=== PATIENT | male | born 1975 | race Two or more races ===

== ENCOUNTER 2017-07-27 18:19 | Emergency (ER) | payer OTHER ==
--- NOTE | 2017-07-27 18:31 | EDPHY ---
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 He is left-handed. 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 He de-gloved the distal aspect of his left index finger distal to the PIP joint. The bone is still intact. No other injuries. He has the tip of the finger with him and his work glove. He last ate at 3:00 p.m. and had a drink of water about 10 minutes ago. REVIEW OF SYSTEMS: Constitutional: denies: chills, fever, recent illness, recent injury EENTM: denies: blurred vision, double vision, nose congestion Respiratory: denies: cough, shortness of breath Cardiac: denies: chest pain, irregular heart rate, lightheadedness, palpitations Gastrointestinal/Abdominal: denies: abdominal pain, diarrhea, nausea, vomiting, blood streaked stools Genitourinary: denies: dysuria, frequency, hematuria, pain Musculoskeletal: See HPI Skin: See HPI Neurological: denies: headache, numbness, paresthesia, tingling, dizziness, weakness Hematologic/Lymphatic: denies: blood clots, easy bleeding, easy bruising Immunologic/allergic: denies: HIV/AIDS, transplant EXAM: GENERAL: Well-appearing, well-nourished and in no acute distress. HEAD: Atraumatic, normocephalic. EYES: Pupils equal round and reactive to light, extraocular movements intact, sclera anicteric, conjunctiva are normal. ENT: TMs normal, nares patent, oropharynx clear without exudates. Moist mucous membranes. NECK: Normal range of motion, supple without lymphadenopathy or JVD. LUNGS: Breath sounds clear to auscultation bilaterally and equal. No wheezes rales or rhonchi. HEART: Regular rate and rhythm without murmurs, rubs or gallops. ABDOMEN: Soft, nontender, normoactive bowel sounds. No guarding, no rebound. No masses appreciated. BACK: No CVA tenderness, no spinal tenderness, step-offs or deformities EXTREMITIES: Degloving injury to left index finger distal to the PIP, bone is intact. Significant pain, NEUROLOGICAL: Cranial nerves II through XII grossly intact. Normal speech, normal gait. 5/5 strength, normal movement in all extremities, normal sensation PSYCH: Normal mood, normal affect. SKIN: See above Source: Patient Exam Limitations: No limitations - Medical/Surgical History Hx Asthma: No Hx Chronic Respiratory Disease: No Hx Diabetes: No Hx Cardiac Disease: No Hx Renal Disease: No Hx Cirrhosis: No Hx Alcoholism: No - Family History Significant Family History: No pertinent family hx - Social History Smoking Status: Never smoked Alcohol Use: Sober Drug Use: None Constitutional: Initial Vital Signs Temperature (C) 37.1 C 07/27/17 18:22 Heart Rate 72 07/27/17 18:22 Respiratory Rate 16 07/27/17 18:22 Blood Pressure 116/79 07/27/17 18:22 O2 Sat (%) 95 07/27/17 18:22 O2 Delivery Mode Room Air Allergies/Adverse Reactions: No Known Allergies Allergy (Verified 07/27/17 18:29) Home Medications: Medication Instructions Recorded Cephalexin [Keflex] 500 mg PO TID #21 cap 07/27/17 Hydrocodone/APAP 5/325 [[place] 1 - 2 tab PO Q4H PRN #20 tab 07/27/17 5/325 (RX)] Medical Decision Making - Diagnostics Imaging Results: Imaging Impressions Finger X-Ray 07/27/17 18:25 Impression: Soft tissue amputation with partial truncation of the distal tuft of the distal portion of the index finger. ED Course/Re-evaluation: 6:30 p.m. I discussed the case with the PA on-call for Dr. Law. They will discuss and call back. X-rays are currently being taken. 6:50 p.m. I discussed the case with Dr. Law who has reviewed the x-rays and will come to rongeur the bone down. He states that he will leave it open because it is a dirty injury. 8:[address] Law completed the amputation and closed the soft tissue. He requests 5 days of Keflex and pain control and follow-up with his office. Differential Diagnosis: Partial list of the Differential diagnosis considered include but were not limited to; finger amputation, degloving and although unlikely based on the history and physical exam, I also considered infection, foreign body. I discussed these differential diagnoses and the plan with the patient as well as the usual and expected course. The patient understands that the diagnosis is provisional and that in medicine we are not always correct and that further workup is often warranted. Usual and customary warnings were given. All of the patient's questions were answered. The patient was instructed to return to the emergency department should the symptoms at all worsen or return, otherwise to followup with the physician as we discussed. - Data Points Laboratory Results: Laboratory Results 07/27/17 18:35 07/27/17 18:35 07/27/17 07/27/17 18:35 18:35 WBC 5.89 10^3/uL 10^3/uL (3.80-9.50) RBC 5.15 10^6/uL 10^6/uL (4.40-6.38) Hgb 15.7 g/dL g/dL (13.7-17.5) Hct 44.2 % % (40.0-51.0) MCV 85.8 fL fL (81.5-99.8) MCH 30.5 pg pg (27.9-34.1) MCHC 35.5 g/dL g/dL (32.4-36.7) RDW 12.5 % % (11.5-15.2) Plt Count 269 10^3/uL 10^3/uL (150-400) MPV 10.3 fL fL (8.7-11.7) Neut % (Auto) 51.3 % % (39.3-74.2) Lymph % (Auto) 40.6 % % (15.0-45.0) [place] % (Auto) 4.9 % % (4.5-13.0) Eos % (Auto) 2.2 % % (0.6-7.6) Baso % (Auto) 0.8 % % (0.3-1.7) Nucleat RBC Rel Count 0.0 % % (0.0-0.2) Absolute Neuts (auto) 3.02 10^3/uL 10^3/uL (1.70-6.50) Absolute Lymphs (auto) 2.39 10^3/uL 10^3/uL (1.00-3.00) Absolute Monos (auto) 0.29 10^3/uL L 10^3/uL (0.30-0.80) Absolute Eos (auto) 0.13 10^3/uL 10^3/uL (0.03-0.40) Absolute Basos (auto) 0.05 10^3/uL 10^3/uL (0.02-0.10) Absolute Nucleated RBC 0.00 10^3/uL 10^3/uL (0-0.01) Immature Gran % 0.2 % % (0.0-1.1) Immature Gran # 0.01 10^3/uL 10^3/uL (0.00-0.10) Sodium 140 mEq/L mEq/L (134-144) Potassium 3.9 mEq/L mEq/L (3.5-5.2) Chloride 106 mEq/L mEq/L (97-110) Carbon Dioxide 20 mEq/l L mEq/l (22-31) Anion Gap 14 mEq/L mEq/L (8-16) BUN 18 mg/dL mg/dL (7-23) Creatinine 0.8 mg/dL mg/dL (0.7-1.3) Estimated GFR > 60 Glucose 103 mg/dL H mg/dL (70-100) Calcium 9.1 mg/dL mg/dL (8.5-10.4) Total Bilirubin 0.8 mg/dL mg/dL (0.1-1.4) AST 41 IU/L IU/L (17-59) ALT 57 IU/L IU/L (21-72) Alkaline Phosphatase 76 IU/L IU/L (38-126) Total Protein 7.4 g/dL g/dL (6.3-8.2) Albumin 4.4 g/dL g/dL (3.5-5.0) Medications Given: Discontinued Medications Hydrocodone Bitart/Acetaminophen ([place] 5/325mg Prepack#6) 1 btl TAKEHOME EDNOW ONE Stop: 07/27/17 20:15 Last Admin: 07/27/17 20:35 Dose: 1 btl Cephalexin HCl (Keflex) 500 mg PO EDNOW ONE PRN Reason: Protocol Stop: 07/27/17 20:52 Last Admin: 07/27/17 20:54 Dose: 500 mg Diphtheria/Tetanus/Acell Pertussis (Boostrix) 0.5 ml IM .ONCE ONE Stop: 07/27/17 18:43 Last Admin: 07/27/17 18:50 Dose: 0.5 ml Cefazolin Sodium 1 gm/ Sodium (Chloride) 100 mls @ 400 mls/hr IV EDNOW ONE PRN Reason: Protocol Stop: 07/27/17 18:53 Last Admin: 07/27/17 18:46 Dose: 100 mls Departure - Departure Disposition: Home, Routine, Self-Care Clinical Impression: Amputation of left index finger Condition: Fair Instructions: Cephalexin (By mouth), Hydrocodone/Acetaminophen (By mouth), Narcotic-Analgesic/Acetaminophen (By mouth), Finger Amputation (ED) Referrals: NONE *PRIMARY CARE P,. [Primary Care Provider] - As per Instructions Jose Luis Law MD [Medical Doctor] - 5-7 days, call for appt. Prescriptions: Cephalexin [Keflex] 500 mg PO TID #21 cap Hydrocodone/APAP 5/325 [[place] 5/325 (RX)] 1 - 2 tab PO Q4H PRN #20 tab PRN Reason: Pain, Moderate
[2017-07-27 18:36] VITALS: TEMP 98.8
[2017-07-27] MEDS ORDERED: ceFAZolin 1 GM in NS 100 ML IV ONE (18:39)
[2017-07-27] MEDS ORDERED: TDAP ADULT 0.5 ML INJ (BOOSTRIX) IM ONE (18:42)
[2017-07-27 18:43] LABS: % IMMATURE GRANULYOCYTES 0.2 % (0.0-1.1); ABSOLUTE IMMATURE GRANULOCYTES 0.01 10^3/uL (0.00-0.10); ADD DIFF? NO; ADD MORPH? NO; ADD SCAN? NO; ATYPICAL LYMPHOCYTE FLAG 0 (0-99); FRAGMENT RBC FLAG 0 (0-99); HEMATOCRIT 44.2 % (40.0-51.0); HEMOGLOBIN 15.7 g/dL (13.7-17.5); LEFT SHIFT FLG 0 (0-99); LIPEMIA HEMOLYSIS FLAG 90 (0-99); MEAN CELL HEMOGLOBIN 30.5 pg (27.9-34.1); MEAN CELL HEMOGLOBIN CONCENTR. 35.5 g/dL (32.4-36.7); MEAN CELL VOLUME 85.8 fL (81.5-99.8); MEAN PLATELET VOLUME 10.3 fL (8.7-11.7); PLATELET CLUMPS FLAG 0 (0-99); PLATELET COUNT 269 10^3/uL (150-400); RED BLOOD CELL COUNT 5.15 10^6/uL (4.40-6.38); RED CELL DISTRIBUTION WIDTH 12.5 % (11.5-15.2)
[2017-07-27 18:55] LABS: ALANINE AMINOTRANSFERASE 57 IU/L (21-72); ALBUMIN 4.4 g/dL (3.5-5.0); ALKALINE PHOSPHATASE 76 IU/L (38-126); ANION GAP 14 mEq/L (8-16); ASPARTATE AMINOTRANSFERASE 41 IU/L (17-59); BILIRUBIN,TOTAL 0.8 mg/dL (0.1-1.4); CALCIUM 9.1 mg/dL (8.5-10.4); CARBON DIOXIDE 20 mEq/l (22-31); CHLORIDE 106 mEq/L (97-110); CREATININE 0.8 mg/dL (0.7-1.3); GLOMERULAR FILTRATION RATE > 60; GLUCOSE 103 mg/dL (70-100); POTASSIUM 3.9 mEq/L (3.5-5.2); SODIUM 140 mEq/L (134-144); TOTAL PROTEIN 7.4 g/dL (6.3-8.2)
[2017-07-27 19:24] VITALS: O2SAT 95
[2017-07-27] MEDS ORDERED: HYDROCOD/APAP 5/325 PREPACK#6 BTL TAKEHOME ONE (20:14)
[2017-07-27 20:24] VITALS: BP 124/78; PULSE 66; RESP 16
[2017-07-27] MEDS ORDERED: CEPHALEXIN 500 MG CAP PO ONE (20:51)
--- NOTE | 2017-07-27 21:04 | GCON ---
[f rep st] CONSULTATION EMERGENCY DEPARTMENT CONSULTATION DATE OF CONSULTATION: 07/27/2017 HISTORY: The patient is a 42-year-old gentleman who works for [employer] out of [place] who is doing work in the [place] area. 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 The amputated part is not available. Otherwise, the patient indicates he is in good health. He received a digital block prior to my arriv al for comfort, and his wound was provisionally cleansed. After examining the patient and identifying overall he was in good health; however emotional due to t he loss of tissue on his left dominant index finger, I determined a suitable candidate for completion amputation and provisional closure. As such, I now washed his hand with soap and water. I then pre pped the left index finger with Povidine iodine and initiated debridement. The tip of the tuft of hi s finger was gone with a transverse loss of bone. The skin was obliquely missing, more so on the rad ial side than on the ulnar side, but significant loss of palmar tissue with preservation of some of t he sterile matrix. I undermined the edges of the eponychial fold and removed all of the sterile matr ix and shortened the skeleton, leaving approximately 8-10 mm distal to the DIP joint. I thoroughly i rrigated the wound and then loosely approximated the soft tissue over the bone. I did not close the skin tightly, which would have required a trans DIP joint amputation. A sterile bulky dressing was a pplied. The patient was given instructions to follow up on Monday for his 1st dressing change, but t o keep his dressing clean, dry, and intact until that time. He will complete a 5 day course of oral antibiotics prescribed by Dr. Berhane Raines, the emergency department physician on-call at the [facility]. I anticipate he will be off work for at least 2-3 weeks while his finger tip mat ures and becomes less painful. /[id number]/MODL
== END 2017-07-27 21:06 | disposition home or self-care (01) ==
LOC: CED 18:19
PROC: 0HQGXZZ Repair Left Hand Skin, External Approach (ICD-10-PCS; principal; 2017-07-27)
DX: S68.621A Partial traumatic transphalangeal amputation of left index finger, initial encounter (principal); W23.0XXA Caught, crushed, jammed, or pinched between moving objects, initial encounter; Y92.69 Other specified industrial and construction area as the place of occurrence of the external cause; Y99.0 Civilian activity done for income or pay; Y93.89 Activity, other specified; Z23 Encounter for immunization
CPT/HCPCS: 73140-PO; 80053-PO; 85025-PO; 96374; J0690